=== PATIENT | female | born 1980 | race Caucasian/White ===

== ENCOUNTER → 2018-02-10 06:47 | Outpatient (CLI) | payer MEDICAID | END | disposition home or self-care (01) | LOC: D.MRI 06:47 | DX: M79.652 Pain in left thigh (principal) ==

== ENCOUNTER → 2018-04-16 09:43 | Outpatient (CLI) | payer MEDICAID | END | disposition home or self-care (01) | LOC: D.MRI 09:43 | DX: S92.352A Displaced fracture of fifth metatarsal bone, left foot, initial encounter for closed fracture (principal); X58.XXXA Exposure to other specified factors, initial encounter ==